=== PATIENT | female | born 1995 | race Caucasian/White ===

== ENCOUNTER → 2025-03-02 | Outpatient (REF) | payer OTHER | LOC: M SFHCWAGY 15:03 | PROVIDERS: ATTEND Specialist | DX: O24.410 Gestational diabetes mellitus in pregnancy, diet controlled (principal) ==

== ENCOUNTER 2025-03-29 19:39 | Inpatient (IN) | payer OTHER ==
[~2025-03-29] VITALS: Ht 160 cm; Wt 82.1 kg
[2025-03-29] MEDS ORDERED: PNVTAB4 PO (19:57)
[2025-03-29] MEDS ORDERED: TUMS750C22 PO (19:57)
[2025-03-29 19:59] VITALS: BP 122/69
[2025-03-29] MEDS ORDERED: TRANEXAMIC ACID INJection 1,000 MG in NS 100 ML IV PRN (20:15)
[2025-03-29] MEDS ORDERED: CARBOPROST TROMETHAMINE 250 MCG/ML AMP IM PRN (20:15)
[2025-03-29] MEDS ORDERED: METHYLERGONOVINE MALEATE 0.2MG/ML 1ML VIAL IM PRN (20:15)
[2025-03-29] MEDS ORDERED: OXYTOCIN INJ 10UNITS/ML 1ML VIAL IM PRN (20:15)
[2025-03-29] MEDS ORDERED: LIDOCAINE 1% MDV 20ML VIAL INFIL PRN (20:15)
[2025-03-29 20:36] LABS: HEMATOCRIT 36.5 % (36.0-47.0); HEMOGLOBIN 12.4 g/dl (12.0-15.5); MEAN CORPUSCULAR HEMOGLOBIN 30.4 pg (27.0-33.0); MEAN CORPUSCULAR VOLUME 89.5 fl (80.0-96.0); PLATELET COUNT, AUTOMATED 200 10^3/uL (150-450); RED BLOOD COUNT 4.08 10^6/uL (4.00-5.40); WHITE BLOOD COUNT 10.7 10^3/uL (4.0-10.0)
[2025-03-29] MEDS: miSOPROStol 50MCG 1/2 TABLET PO SCH (20:47)
[2025-03-29] MEDS: CALCIUM CARBONATE 500 MG CHEW U/D PO PRN (20:48)
[2025-03-29 21:28] LABS: HIV 1&2 SCREEN NEGATIVE (NEGATIVE)
[2025-03-29 21:36] LABS: HEPATITIS C VIRUS ABY INDEX 0.07 INDEX (<0.8)
[2025-03-29 21:49] VITALS: BP 96/54
[2025-03-29 22:49] VITALS: BP 112/71
[2025-03-30] VITALS (100 sets, daily range): BP systolic 58–131; BP diastolic 25–83
[2025-03-30] MEDS: LACTATED RINGER'S 1000 ML IV STA (11:18)
[2025-03-30] MEDS ORDERED: NALOXONE INJ 0.4MG/1ML VIAL IV PRN (11:35)
[2025-03-30] MEDS ORDERED: EPIDURAL/PCA KEYS XX PRN (11:35)
[2025-03-30] MEDS ORDERED: ONDANSETRON 4MG 2ML VIAL IV PRN (11:35)
[2025-03-30] MEDS ORDERED: diphenhydrAMINE 50MG/ML VIAL IV PRN (11:35)
[2025-03-30] MEDS: FENTANYL/ROPIVACAINE/NACL BAG 100 ML EPIDURAL SCH (12:19)
[2025-03-30] MEDS: ePHEDrine SULFATE 25 MG/5 ML(5MG/ML) SYRINGE IVP PRN ×3 (12:47→17:30)
[2025-03-30] MEDS: LR 500 ML IV PRN (12:48)
[2025-03-30] MEDS: OXYTOCIN DRIP 30 UNITS in IV 1 EA IV SCH ×3 (13:31→23:51)
[2025-03-30] MEDS: LR 1,000 ML IV SCH (13:31)
[2025-03-30] MEDS: LR 1,000 ML IV ONE (17:30)
[2025-03-30] MEDS ORDERED: RHOGAM 300MCG (1500IU) INJ IM SCH (23:30)
[2025-03-30] MEDS ORDERED: MOM 30ML SUSPENSION UDC PO PRN (23:30)
[2025-03-30] MEDS ORDERED: METHYLERGONOVINE MALEATE 0.2 MG TAB PO PRN (23:30)
[2025-03-30] MEDS: OXYTOCIN DRIP 30 UNITS in IV 1 EA IV PRN (23:30)
[2025-03-30] MEDS ORDERED: CALCIUM CARBONATE 500 MG CHEW U/D PO PRN (23:30)
[2025-03-30] MEDS ORDERED: IBUPROFEN 600MG TAB PO PRN (23:30)
[2025-03-30] MEDS ORDERED: ACETAMINOPHEN 325 MG TAB PO PRN (23:30)
[2025-03-31 00:58] VITALS: BP 121/66; O2SAT 97
[2025-03-31] MEDS: DIBUCAINE 1% OINTMENT 30GM TOP PRN (02:06)
[2025-03-31] MEDS: ACETAMINOPHEN 500 MG TAB PO PRN (03:08)
[2025-03-31 06:00] VITALS: BP 112/58; O2SAT 98
[2025-03-31] MEDS: PRENATAL VITAMINS CHEWABLE TABLET PO SCH (07:49)
[2025-03-31] MEDS: IBUPROFEN 800 MG TAB PO PRN (07:49)
[2025-03-31] MEDS: DOCUSATE SODIUM 100MG CAPSULE PO PRN (16:52)
[2025-03-31 18:00] VITALS: BP 131/80; O2SAT 99
[2025-04-01 06:00] VITALS: BP 104/62; O2SAT 100
[2025-04-01] MEDS: MEASLES,MUMPS,RUBELLA VACCINE INJ (MMR-II) SC.IMMUN ONE (07:33)
[2025-04-01] MEDS ORDERED: IBUP80TA PO (10:02)
[2025-04-01] MEDS ORDERED: ACET-683 PO (10:02)
== END 2025-04-01 12:29 | disposition home or self-care (01) | DRG 807 ==
LOC: M LDI 19:39 → M OBS 03-31 00:58
PROVIDERS: ADMIT Advanced Practice Midwife; ATTEND Obstetrics & Gynecology
PROC: 3E0P7GC Introduction of Other Therapeutic Substance into Female Reproductive, Via Natural or Artificial Opening (ICD-10-PCS; 2025-03-29)
PROC: 10E0XZZ Delivery of Products of Conception, External Approach (ICD-10-PCS; principal; 2025-03-30)
PROC: 0KQM0ZZ Repair Perineum Muscle, Open Approach (ICD-10-PCS; 2025-03-30)
DX: O24.420 Gestational diabetes mellitus in childbirth, diet controlled (principal); Z37.0 Single live birth; Z3A.39 39 weeks gestation of pregnancy; O70.1 Second degree perineal laceration during delivery